=== PATIENT | female | born 1930 ===

== ENCOUNTER 2016-11-13 09:42 | Emergency (ER) | payer MEDICARE, OTHER ==
[2016-11-13] MEDS ORDERED: Albuterol-Ipratrop 3 mg / 0.5 (3 ml) UD INH STA (10:33)
[2016-11-13] MEDS ORDERED: Bacitracin 500 Units/gm Oint Foilpak UD TOP ONE (10:34)
[2016-11-13] MEDS ORDERED: Hydrocodone/Acetaminophen 5 mg /300 mg Tab PO STA (10:34)
[2016-11-13] MEDS ORDERED: Hydrocodone/Acetaminophen 5 mg /300 mg Tab PO ONE (10:44)
[2016-11-13] MEDS ORDERED: Bacitracin 500 Units/gm Oint Foilpak UD ONE (10:44)
[2016-11-13] MEDS ORDERED: Albuterol-Ipratrop 3 mg / 0.5 (3 ml) UD ONE (10:48)
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
[2016-11-13 11:37] VITALS: PULSE 71
[2016-11-13 11:53] VITALS: BP 114/51; RESP 20; TEMP 97.5
[2016-11-13 12:33] VITALS: O2SAT 94
== END 2016-11-13 12:12 | disposition home or self-care (01) ==
LOC: C.ER 09:42
DX: T59.811A Toxic effect of smoke, accidental (unintentional), initial encounter (principal); J70.5 Respiratory conditions due to smoke inhalation; R06.2 Wheezing; S80.812A Abrasion, left lower leg, initial encounter; S80.811A Abrasion, right lower leg, initial encounter; S00.212A Abrasion of left eyelid and periocular area, initial encounter; X58.XXXA Exposure to other specified factors, initial encounter; Y92.038 Other place in apartment as the place of occurrence of the external cause